=== PATIENT | female | born 1930 ===

== ENCOUNTER 2016-03-01 13:42 | Outpatient (RCR) | payer MEDICARE, BC | END 2016-03-28 | disposition home or self-care (01) | LOC: WCC 13:42 | DX: L89.153 Pressure ulcer of sacral region, stage 3 (principal); L89.93 Pressure ulcer of unspecified site, stage 3; M62.81 Muscle weakness (generalized); H60.12 Cellulitis of left external ear; I25.10 Atherosclerotic heart disease of native coronary artery without angina pectoris; I10 Essential (primary) hypertension; E11.9 Type 2 diabetes mellitus without complications; Z86.73 Personal history of transient ischemic attack (TIA), and cerebral infarction without residual deficits; M19.90 Unspecified osteoarthritis, unspecified site; I12.9 Hypertensive chronic kidney disease with stage 1 through stage 4 chronic kidney disease, or unspecified chronic kidney disease; Z79.82 Long term (current) use of aspirin | CPT/HCPCS: 11043; 15271; G0463; Q4132 ==

== ENCOUNTER 2016-03-29 13:30 | Outpatient (RCR) | payer MEDICARE, BC | END 2016-04-25 | disposition home or self-care (01) | LOC: WCC 13:30 | DX: L89.153 Pressure ulcer of sacral region, stage 3 (principal); L89.211 Pressure ulcer of right hip, stage 1; M62.81 Muscle weakness (generalized); L89.93 Pressure ulcer of unspecified site, stage 3; H60.12 Cellulitis of left external ear; I10 Essential (primary) hypertension; E11.9 Type 2 diabetes mellitus without complications; I51.9 Heart disease, unspecified; Z86.73 Personal history of transient ischemic attack (TIA), and cerebral infarction without residual deficits; M19.90 Unspecified osteoarthritis, unspecified site; D64.9 Anemia, unspecified; N28.9 Disorder of kidney and ureter, unspecified; Z79.82 Long term (current) use of aspirin | CPT/HCPCS: 11043 ==

== ENCOUNTER 2016-04-26 13:30 | Outpatient (RCR) | payer MEDICARE, BC | END 2016-05-26 | disposition home or self-care (01) | LOC: WCC 13:30 | DX: L89.153 Pressure ulcer of sacral region, stage 3 (principal); M62.81 Muscle weakness (generalized); L89.220 Pressure ulcer of left hip, unstageable; I10 Essential (primary) hypertension; I51.9 Heart disease, unspecified; E11.9 Type 2 diabetes mellitus without complications; D64.9 Anemia, unspecified; M19.90 Unspecified osteoarthritis, unspecified site; Z86.73 Personal history of transient ischemic attack (TIA), and cerebral infarction without residual deficits; N28.9 Disorder of kidney and ureter, unspecified; Z79.82 Long term (current) use of aspirin | CPT/HCPCS: 10140; 11043 ==

== ENCOUNTER 2016-05-31 14:00 | Outpatient (RCR) | payer MEDICARE, BC | END 2016-06-25 | disposition home or self-care (01) | LOC: WCC 14:00 | DX: L89.153 Pressure ulcer of sacral region, stage 3 (principal); M62.81 Muscle weakness (generalized); L89.220 Pressure ulcer of left hip, unstageable; I10 Essential (primary) hypertension; I51.9 Heart disease, unspecified; E11.9 Type 2 diabetes mellitus without complications; D64.9 Anemia, unspecified; N28.9 Disorder of kidney and ureter, unspecified; M19.90 Unspecified osteoarthritis, unspecified site; Z86.73 Personal history of transient ischemic attack (TIA), and cerebral infarction without residual deficits; Z79.82 Long term (current) use of aspirin | CPT/HCPCS: 11043; G0463 ==

== ENCOUNTER 2016-07-05 13:38 | Outpatient (RCR) | payer MEDICARE, BC ==
[~2016-07-05] VITALS: Ht 154.9 cm; Wt 45.4 kg
[2016-07-07] MEDS ORDERED: Lidocaine HCl 2% Jelly 5ml Tube TOPIC ONE (15:45)
[2016-07-13] MEDS ORDERED: Lidocaine HCl 2% Jelly 5ml Tube TOPIC ONE (16:30)
== END 2016-07-26 | disposition home or self-care (01) ==
LOC: WCC 13:38
DX: L89.153 Pressure ulcer of sacral region, stage 3 (principal); M62.81 Muscle weakness (generalized); L89.210 Pressure ulcer of right hip, unstageable; I10 Essential (primary) hypertension; I51.9 Heart disease, unspecified; M19.90 Unspecified osteoarthritis, unspecified site; Z86.73 Personal history of transient ischemic attack (TIA), and cerebral infarction without residual deficits; N28.9 Disorder of kidney and ureter, unspecified; Z79.82 Long term (current) use of aspirin; L89.220 Pressure ulcer of left hip, unstageable
CPT/HCPCS: 11043

== ENCOUNTER 2016-08-02 13:36 | Outpatient (RCR) | payer MEDICARE, BC ==
[~2016-08-02] VITALS: Ht 152.4 cm; Wt 45.4 kg
[2016-08-09] MEDS ORDERED: Lidocaine HCl 2% Jelly 5ml Tube TOPIC ONE (15:00)
[2016-08-18] MEDS ORDERED: Lidocaine HCl 2% Jelly 5ml Tube TOPIC ONE (08:00)
== END 2016-08-25 | disposition home or self-care (01) ==
LOC: WCC 13:36
DX: L89.152 Pressure ulcer of sacral region, stage 2 (principal); L89.213 Pressure ulcer of right hip, stage 3; M62.81 Muscle weakness (generalized); I13.10 Hypertensive heart and chronic kidney disease without heart failure, with stage 1 through stage 4 chronic kidney disease, or unspecified chronic kidney disease; E11.22 Type 2 diabetes mellitus with diabetic chronic kidney disease; N18.9 Chronic kidney disease, unspecified; Z86.73 Personal history of transient ischemic attack (TIA), and cerebral infarction without residual deficits; M19.90 Unspecified osteoarthritis, unspecified site; Z79.82 Long term (current) use of aspirin
CPT/HCPCS: 11043

== ENCOUNTER 2016-08-30 14:14 | Outpatient (RCR) | payer MEDICARE, BC ==
[~2016-08-30] VITALS: Ht 152.4 cm; Wt 45.4 kg
[2016-09-08] MEDS ORDERED: Lidocaine HCl 2% Jelly 5ml Tube TOPIC ONE (09:45)
== END 2016-09-25 | disposition home or self-care (01) ==
LOC: WCC 14:14
DX: L89.153 Pressure ulcer of sacral region, stage 3 (principal); M62.81 Muscle weakness (generalized); L89.213 Pressure ulcer of right hip, stage 3; I13.10 Hypertensive heart and chronic kidney disease without heart failure, with stage 1 through stage 4 chronic kidney disease, or unspecified chronic kidney disease; N18.9 Chronic kidney disease, unspecified; E11.9 Type 2 diabetes mellitus without complications; Z86.73 Personal history of transient ischemic attack (TIA), and cerebral infarction without residual deficits; Z79.82 Long term (current) use of aspirin
CPT/HCPCS: 11043

== ENCOUNTER 2016-10-04 13:47 | Outpatient (RCR) | payer MEDICARE, BC ==
[~2016-10-04] VITALS: Ht 152.4 cm; Wt 45.4 kg
[2016-10-27] MEDS ORDERED: Lidocaine HCl 2% Jelly 5ml Tube TOPIC ONE (08:45)
== END 2016-10-26 | disposition home or self-care (01) ==
LOC: WCC 13:47
DX: L89.153 Pressure ulcer of sacral region, stage 3 (principal); M62.81 Muscle weakness (generalized); L89.213 Pressure ulcer of right hip, stage 3; S61.411D Laceration without foreign body of right hand, subsequent encounter; X58.XXXD Exposure to other specified factors, subsequent encounter; I13.10 Hypertensive heart and chronic kidney disease without heart failure, with stage 1 through stage 4 chronic kidney disease, or unspecified chronic kidney disease; N18.9 Chronic kidney disease, unspecified; E11.9 Type 2 diabetes mellitus without complications; M19.90 Unspecified osteoarthritis, unspecified site; Z86.73 Personal history of transient ischemic attack (TIA), and cerebral infarction without residual deficits; Z79.82 Long term (current) use of aspirin
CPT/HCPCS: 11043

== ENCOUNTER 2016-11-01 13:30 | Outpatient (RCR) | payer MEDICARE, BC | END 2016-11-25 | disposition home or self-care (01) | LOC: WCC 13:30 | DX: L89.153 Pressure ulcer of sacral region, stage 3 (principal); M62.81 Muscle weakness (generalized); L89.213 Pressure ulcer of right hip, stage 3; S61.411D Laceration without foreign body of right hand, subsequent encounter; X58.XXXD Exposure to other specified factors, subsequent encounter; I13.10 Hypertensive heart and chronic kidney disease without heart failure, with stage 1 through stage 4 chronic kidney disease, or unspecified chronic kidney disease; N18.9 Chronic kidney disease, unspecified; E11.9 Type 2 diabetes mellitus without complications; M19.90 Unspecified osteoarthritis, unspecified site; Z86.73 Personal history of transient ischemic attack (TIA), and cerebral infarction without residual deficits; Z79.82 Long term (current) use of aspirin | CPT/HCPCS: 11043 ==

== ENCOUNTER 2016-12-06 13:30 | Outpatient (RCR) | payer MEDICARE, BC | END 2016-12-26 | disposition home or self-care (01) | LOC: WCC 13:30 | DX: L89.153 Pressure ulcer of sacral region, stage 3 (principal); M62.81 Muscle weakness (generalized); L89.213 Pressure ulcer of right hip, stage 3; S61.411D Laceration without foreign body of right hand, subsequent encounter; I13.10 Hypertensive heart and chronic kidney disease without heart failure, with stage 1 through stage 4 chronic kidney disease, or unspecified chronic kidney disease; E11.22 Type 2 diabetes mellitus with diabetic chronic kidney disease; N18.9 Chronic kidney disease, unspecified; M19.90 Unspecified osteoarthritis, unspecified site; Z86.73 Personal history of transient ischemic attack (TIA), and cerebral infarction without residual deficits; Z79.82 Long term (current) use of aspirin; X58.XXXD Exposure to other specified factors, subsequent encounter | CPT/HCPCS: G0463 ==